=== PATIENT | male | born 1990 | race Caucasian/White ===

== ENCOUNTER 2019-01-06 13:50 | Inpatient (IN) | payer MEDICAID ==
[~2019-01-06] VITALS: Ht 177.8 cm; Wt 78.5 kg
[2019-01-06 13:50] VITALS: BP 120/64
--- NOTE | 2019-01-06 13:50 | NUR ---
PATIENT AMBULATED TO ER BED 9.
--- NOTE | 2019-01-06 13:55 | NUR ---
PT C/O BILATERAL ARM ABSCESS X1 MONTH. PATIENT IS A HEROINE DRUG USER. NOTED BIALTERAL ABSCESS. AFEBRILE AT THIS TIME. DENIES NAUSEA, VOMITING. PMH--DRUG USE (HEROINE) NKA
[2019-01-06] MEDS ORDERED: NACL 0.9% 1,000 ML IV ONE (14:33)
[2019-01-06] MEDS ORDERED: VANCOMYCIN 1,000 MG in DEXTROSE 5% 250 ML IV ONE (14:35)
[2019-01-06] MEDS ORDERED: KETOROLAC 30 MG/ML VIAL IVP ONE (14:35)
[2019-01-06] MEDS ORDERED: MORPHINE SULFATE 2 MG/ML SYR IVP ONE (14:35)
--- NOTE | 2019-01-06 14:43 | NUR ---
X RAY AT BEDSIDE
[2019-01-06] MEDS ORDERED: VANCOMYCIN 1,000 MG VIAL ONE (14:52)
[2019-01-06] MEDS ORDERED: NACL 0.9% 1,000 ML IV SCH (16:13)
[2019-01-06] MEDS ORDERED: ACETAMINOPHEN 325 MG TAB PO PRN (16:15)
[2019-01-06] MEDS ORDERED: DOCUSATE SODIUM 100 MG GELCAP PO PRN (16:15)
[2019-01-06] MEDS ORDERED: HYDROcodone/APAP 7.5/325 MG 1 TAB PO PRN (16:15)
[2019-01-06] MEDS ORDERED: ONDANSETRON 4 MG/2 ML VIAL IM/IVP PRN (16:15)
[2019-01-06] MEDS ORDERED: MORPHINE SULFATE 2 MG/ML SYR IVP PRN (16:15)
--- NOTE | 2019-01-06 16:23 | NUR ---
PT REFUSED PICTURES OF WOUNDS.
[2019-01-06 16:30] LABS: BASOPHILS # (AUTO) 0.1 K/uL (0.00-0.22); BASOPHILS % (AUTO) 0.4 % (0.0-2.0); EOSINOPHILS # (AUTO) 0.2 K/uL (0-0.4); EOSINOPHILS % (AUTO) 1.7 % (0.0-4.0); HEMATOCRIT 20.9 % (36-52); LYMPHOCYTES # (AUTO) 3.8 K/uL (2.0-11.5); LYMPHOCYTES % (AUTO) 32.9 % (20.5-51.1); MEAN CORPUSCULAR HEMOGLOBIN 22 pg (27-31); MEAN CORPUSCULAR HGB CONC 33 g/dL (33-37); MEAN CORPUSCULAR VOLUME 65.8 fL (80-94); MONOCYTES # (AUTO) 0.6 K/uL (0.8-1.0); MONOCYTES % (AUTO) 4.8 % (1.7-9.3); NEUTROPHILS % (AUTO) 60.2 % (42.2-75.2); PLATELET COUNT (AUTO) 568 K/uL (140-450); RED BLOOD CELL COUNT(AUTO) 3.18 MIL/uL (4.20-6.10); WHITE BLOOD COUNT (AUTO) 11.6 K/uL (4.8-10.8)
[2019-01-06 16:35] LABS: HEMOGLOBIN 6.9 g/dL (12.0-18.0)
[2019-01-06] MEDS ORDERED: VANCOMYCIN PER PHARMACY MC PRN (16:55)
[2019-01-06 16:57] LABS: ANION GAP 9.3 (8-16); CARBON DIOXIDE 29.9 mmol/L (21-32); POTASSIUM 4.2 mmol/L (3.5-5.1)
[2019-01-06 16:58] LABS: CREATININE 0.7 mg/dL (0.7-1.3); TOTAL BILIRUBIN 1.1 mg/dL (0.0-1.0)
[2019-01-06 16:59] LABS: ALBUMIN 2.6 g/dL (3.4-5.0); MAGNESIUM 1.8 mg/dL (1.8-2.4); PHOSPHORUS 5.4 mg/dL (2.5-4.9)
[2019-01-06 17:00] VITALS: BP 104/47
[2019-01-06 17:00] LABS: FREE T4 (FREE THYROXINE) 1.11 ng/dL (0.76-1.46); THYROID STIMULATING HORMONE 3.16 uIU/mL (0.34-3.74)
--- NOTE | 2019-01-06 17:00 | NUR ---
Patient admitted to care of Dr. Gasca . Admited to med surg Rm [id number]. Belongings list completed. Report to MARIANA Gallagher. Trasnfer of care at this time. Pt in stable condition.
--- NOTE | 2019-01-06 17:15 | NUR ---
PT REFUSES MRSA SWAB, PT REFUSES PHOTO OF WOUNDS, PT REFUSES TO UNDRESS TO CHECK SKIN.
[2019-01-06] MEDS ORDERED: CALCIUM ACETATE 667 MG TAB PO SCH (17:31)
--- NOTE | 2019-01-06 17:38 | NUR ---
US AT BEDSIDE.
[2019-01-06 18:12] LABS: CHOL/HDL RATIO 2.2 (1-4.5)
--- NOTE | 2019-01-06 18:24 | NUR ---
BILAT ARM WOUND CLEANED, CULTURES OBTAINED, DRESSED WITH NON ADHERENT DRESSING AND MIKIE PT MAUREEN WELL.
--- NOTE | 2019-01-06 19:01 | NUR ---
ASKED PT TO SIGN CONSENT FOR TRANSFUSION, PT MUMBLED AND APPEARED ANNOYED, WANTS TO MAKE CALLS FIRST, PHONE PROVIDED TO PT.
--- NOTE | 2019-01-06 19:29 | NUR ---
RECIEVED PATIENT AAOX4 , NOT IN RESP. DISTRESS ,AFEBRILE , WITH C/O OF BILATERAL ABCESS ON BOTH FOREARM WITH FOUL ODOR , WITH DRESSING DRY AND INTACT , WITH BEARABLE PAIN PT. SAID .WITH IV SITE INTACT AND PATENT , BED IN LOW POSITION ,SIDERAILS UP X2 ,CALL LIGHT WITHIN REACH , REFUSED BT . WILL CONTINUE TO MONITOR .
--- NOTE | 2019-01-06 19:29 | NUR ---
REPORT GIVEN TO DEVIL DOG NURSE, PT IN STABLE CONDITION. PT UP AMBULATING TO BATHROOM WITH STEADY GAIT.
[2019-01-06 20:00] VITALS: BP 100/60
[2019-01-06] MEDS: ACETAMINOPHEN 325 MG TAB PO SCH (20:43)
--- NOTE | 2019-01-06 20:45 | NUR ---
REFERRED TO [facility] BECAUSE PT IS INSISTED REFUSAL FOR BLOOD TRANSFUSSION . [facility]ANDY TALKED THE PT ABOUT ORDERED BT. UNTIL PT FINALLY CONVINCE BY [facility] FOR BT. SECURED CONSENT FOR BT. WILL CONT. TO MONITOR.
[2019-01-06] MEDS ORDERED: PIPER/TAZO 3.375GM/D5W PREMIX 50 ML IV SCH (21:00)
[2019-01-06] MEDS ORDERED: VANCOMYCIN 1GM/DEXT 5% PREMIX 200 ML IV SCH (22:00)
[2019-01-07] VITALS: BP 100/59
[2019-01-07] MEDS ORDERED: FUROSEMIDE 20 MG TAB PO SCH
--- NOTE | 2019-01-07 00:25 | NUR ---
V/'S TAKEN ,NOT IN RESP. DISTRESS , AFEBRILE.
--- NOTE | 2019-01-07 00:40 | NUR ---
V/S TAKEN , NO FURTHER COMPLAIN MADE AT THIS TIME .PT. SAID JUST WILL ME ALONE. INFORMED CHARGE NURSE.CALL LIGHT WITHIN REACH.
[2019-01-07] MEDS: ACETAMINOPHEN 325 MG TAB PO SCH (01:43)
[2019-01-07] MEDS ORDERED: cloNIDine 0.1 MG TAB PO SCH (02:30)
[2019-01-07] MEDS ORDERED: MORPHINE TAB ER 15 MG TABER PO SCH (02:30)
--- NOTE | 2019-01-07 03:30 | NUR ---
IV CANNULLA OUT , REFUSED FOR RE INSERTION , REFUSED FOR BT , PT STATED LEAVE ME ALONE. REFERRED TO CHARGE NURSE . CHARGE NURSE TALKED TO PT.BUT STILL REFUSED FOR BT AND IV INSERTION. REFERRED TO MANDY ,MANDY TALKED THE PT. BUT THE PT STILL REFUSED FOR BT AND IV RE INSERTION. WILL CONTINUE TO MONITOR.
[2019-01-07 04:00] VITALS: BP 100/59
--- NOTE | 2019-01-07 05:10 | NUR ---
REFUSED ECG .INFORMED CHARGE NURSE.
--- NOTE | 2019-01-07 07:19 | NUR ---
PT. REFUSED PICC LINE OR ANY NEEDLE INSERTION ,REFUSED BLOOD DRAW. [facility]ANDY INFORMED.
--- NOTE | 2019-01-07 07:20 | NUR ---
ENDORSED TO AM SHIFT NURSE FOR CONTINUITY OF CARE.
--- NOTE | 2019-01-07 07:20 | NUR ---
RECEIVED BEDSIDE REPORT FROM DAY SHIFT RN. PATIENT STABLE ON RA. SAFETY PRECAUTIONS IN PLACE. CALL LIGHT IN REACH. NO IV ACCESS AT PRESENT TIME DUE TO PATIENT REFUSAL FOR INSERTION. PATIENT REFUSING ALL IV MEDICATIONS. PATIENT ALERT AND ORIENTED. UPDATED PATIENT ON PLAN OF CARE. PATIENT STATES "I AM A HEROIN ADDICT AND NEED SOMETHING FOR WITHDRAWAL. I AM GOING TO LEAVE IF I DO NOT GET SOMETHING FOR WITHDRAWALS." EDUCATED PATIENT ON CURRENT MEDICATIONS AVAILABLE WHICH INCLUDED NORCO PO. PATIENT STATES" THAT DOES NOTHING FOR ME." EDUCATED PATIENT ON NEED FOR IV ACCESS FOR MORPHINE ADMINISTRATION. PATIENT STATED" I HAVE NO VEINS." EDUCATED PATIENT ON ALTERNATIVE IV ACCESS OPTIONS. PATIENT SAYS WE CAN TRY THE FOOT. WILL SPEAK TO DOCTOR ABOUT PATIENT NEEDS.
--- NOTE | 2019-01-07 07:25 | NUR ---
SPOKE TO DR. BETANCOURT ABOUT PATIENT NEEDS AND IV ACCESS. ORDER FOR PICC LINE IS PENDING PATIENT CONSENT, AND WE CAN TRY A SUBCLAVIAN VEIN. IF NEED BE DR WILL PLACE ORDER FOR LOWER EXTREMITY PERIPHERAL IV. EDUCATED PATIENT ON THESE POSSIBILITIES. PATIENT IS RELUCTANT TO HAVE ANY MORE IV INSERTION AND STATES HE IS GOING TO LEAVE. DOCTOR WILL SEE PATIENT TO FURTHER EXPLAIN PROCEDURE FOR PICC INSERTION.
--- NOTE | 2019-01-07 07:47 | NUR ---
PATIENT HAS BEEN SCREENED AND CATEGORIZED HIGH NUTRITION RISK. PATIENT WILL BE SEEN WITHIN 1-2 DAYS OF ADMISSION. 01/07/19-01/08/[address]
[2019-01-07] MEDS ORDERED: CALCIUM ACETATE 667 MG TAB PO SCH (08:00)
--- NOTE | 2019-01-07 08:10 | NUR ---
PATIENT WALKED OFF UNIT. ENSURED PATIENT THAT WE ARE HERE TO HELP BUT THAT WE NEED IV ACCESS TO HELP HIM FURTHER. HE STATED " I AM LEAVING YOU ARE NOT HELPING", HE THEN WALKED AWAY. NO SIGNS OF DISTRESS. WALKING STEADY. BREATHING WELL AND SPEAKING CLEARLY.
[2019-01-07 08:29] LABS: T4 (THYROXINE) 7.3 ug/dL (4.5-12.0)
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
--- NOTE | 2019-01-07 09:30 | NUR ---
WOUND CARE CONSULT NOT DONE. PTAmi JURADO.
--- NOTE | 2019-01-07 09:52 | NUR ---
SW attempted to conduct assessment with patient. SW confirmed with Charge Nurse that patient has eloped.
[2019-01-07 15:16] LABS: FOLIC ACID 17.3 ng/mL (>3.0)
== END 2019-01-07 08:10 | disposition left against medical advice (07) | DRG 383 ==
LOC: MED 13:50 → MTU 16:20
PROVIDERS: ADMIT General Practice; ATTEND General Practice
PROC: 05HY33Z Insertion of Infusion Device into Upper Vein, Percutaneous Approach (ICD-10-PCS; principal; 2019-01-06)
PROC: B546ZZA Ultrasonography of Right Subclavian Vein, Guidance (ICD-10-PCS; 2019-01-06)
DX: L03.114 Cellulitis of left upper limb (principal); E43 Unspecified severe protein-calorie malnutrition; E83.39 Other disorders of phosphorus metabolism; D50.9 Iron deficiency anemia, unspecified; F19.10 Other psychoactive substance abuse, uncomplicated; L98.499 Non-pressure chronic ulcer of skin of other sites with unspecified severity; Z68.24 Body mass index [BMI] 24.0-24.9, adult; L03.113 Cellulitis of right upper limb; Z90.49 Acquired absence of other specified parts of digestive tract; Z59.0 Homelessness
CPT/HCPCS: 36415; 71045; 73090; 76881; 80053; 82150; 82607; 82728; 82746; 83036; 83540; 83605; 83690; 83735; 83880; 84100; 84436; 84439; 84443; 84484; 85025; 85045; 85610; 85730; 86886; 86900; 86901; 86920; 87040; 87070; 87075; 87186; 87205; 96361; J1885; J2270; J2543; J3370; J7030; J7060; Q0092; Q0163